=== PATIENT | male | born 1995 | race Caucasian/White ===

== ENCOUNTER → 2018-07-13 12:01 | Outpatient (CLI) | payer OTHER, SELFPAY ==
[2018-07-13 14:53] LABS: HIV - WCH Non-Reactive (Nonreactive)
[2018-07-13 16:33] LABS: Chlamydia Trachomatis by PCR Negative (Negative)
[2018-07-13 16:34] LABS: Probe Check PASS; Specimen Processing Control PASS
[2018-07-13 16:35] LABS: Sample Adequacy Control PASS
[2018-07-14 14:14] LABS: Hep C Antibodies <0.1 s/co ratio (0.0-0.9)
[2018-07-16 01:17] LABS: Rapid Plasmin Reagin (RPR) NONREACTIVE (NONREACTIVE)
== END ==
PROVIDERS: Family Provider Family Medicine; PCP Family Medicine; Visit Provider Family Medicine
DX: Z11.3 Encounter for screening for infections with a predominantly sexual mode of transmission (principal)
CPT/HCPCS: 36415; 86592; 86703; 86803; 87491

== ENCOUNTER → 2018-07-27 16:35 | Outpatient (CLI) | payer OTHER, SELFPAY ==
[2018-07-27 17:28] LABS: Absolute Lymphocyte Count 1.56 X10^3/ul (0.83-4.51); Absolute Neutrophil Count 4.1 X10^3/uL (2.0-7.7); Basophil# 0.02 X10^3/uL; Basophil% 0.3 % (0-1); Eosinophil# 0.19 X10^3/uL; Hematocrit 42.5 % (40-54); Hemoglobin 14.8 g/dl (13.0-16.5); Lymphocyte # 1.56 X10^3/ul (4.0); Lymphocyte % 24.9 % (19-41); Mean Corp Hgb Conc 34.8 g/gl (32-36); Mean Platelet Vol. 9.7 fl (6.2-12.0); Monocyte# 0.43 X10^3/uL; Monocyte% 6.9 % (0-10); Neutrophil # 4.06 X10^3/uL (2.7-7.7); Neutrophil % 64.7 % (47-70); Platelet Count 243 K/mm3 (150-450); RBC Distribution Width CV 11.8 % (11.6-14.6); RBC Distribution Width SD 36.7 fl (35.1-43.9); Red Blood Count 4.94 M/mm3 (4.6-6.2); White Blood Count 6.3 K/mm3 (4.4-11.0)
[2018-07-27 17:31] LABS: POSITIVE COUNT NO; POSITIVE DIFFERENTIAL NO; POSITIVE MORPHOLOGY NO
[2018-07-27 17:58] LABS: Anion Gap 6 (5-15); BUN 17 mg/dL (7-18); BUN/Creat Ratio 15.3 RATIO (10-20); Calcium,Total 8.7 mg/dL (8.5-10.1); Chloride 104 mmol/L (98-107); Creatinine, Serum 1.11 mg/dL (0.70-1.30); EST Glomerular Filtration Rate 87 mL/min (>60); Est Glom Filt Rate - Afr Amer 105 mL/min (>60); Glucose 102 mg/dL (74-106); Potassium 3.8 mmol/L (3.5-5.1); Sodium Level 139 mmol/L (136-145)
== END ==
PROVIDERS: Family Provider Family Medicine; PCP Family Medicine; Visit Provider Family Medicine
DX: I49.9 Cardiac arrhythmia, unspecified (principal)
CPT/HCPCS: 36415; 80048; 83735; 85025

== ENCOUNTER → 2020-07-06 09:53 | Outpatient (CLI) | payer OTHER, SELFPAY ==
[2018-11-10 16:02] VITALS: BMI 29.5
[2020-07-06 13:21] LABS: HIV - WCH Non-Reactive (Nonreactive); Hepatitis C Antibody Non-Reactive (Nonreactive)
[2020-07-10 15:16] LABS: Gonococcus By Nucleic Acid AMP Negative (Negative)
[2020-07-10 15:22] LABS: Chlamydia By Nucleic Acid AMP Positive (Negative)
[2020-07-12 05:22] LABS: Rapid Plasmin Reagin (RPR) NONREACTIVE (NONREACTIVE)
== END ==
PROVIDERS: PCP Family Medicine; Referring Provider Family Medicine; Visit Provider Family Medicine
DX: Z11.3 Encounter for screening for infections with a predominantly sexual mode of transmission (principal)
CPT/HCPCS: 36415; 86592; 86703; 86803; 87086; 87491; 87591

== ENCOUNTER → 2020-07-19 | Outpatient (CLI) | payer OTHER, SELFPAY ==
[2018-11-10 16:02] VITALS: BMI 29.5
[2020-07-19 18:08] LABS: Chlamydia Trachomatis by PCR Negative (Negative); Neisserai gonorrhoeae by PCR Negative (Negative); Probe Check PASS; Sample Adequacy Control PASS; Specimen Processing Control PASS
== END | disposition home or self-care (01) ==
LOC: LABSPEC 12:11
PROVIDERS: PCP Family Medicine; Referring Provider Family Medicine; Visit Provider Family Medicine
DX: A74.9 Chlamydial infection, unspecified (principal)
CPT/HCPCS: 87491; 87591

== ENCOUNTER 2021-02-21 12:13 | Emergency (ER) | payer BC, SELFPAY ==
[2018-11-10 16:02] VITALS: BMI 29.5
[2021-02-21 12:14] VITALS: BP 171/104; PULSE 93; RESP 16; TEMP 36.6; O2SAT 98; BMI 29.2
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
[2021-02-21] MEDS: Rabies Immune Globulin/PF 300 UNIT/ML, 5 ML VIAL 1500 UNIT IM (15:03)
[2021-02-21] MEDS: Rabies Immune Globulin/PF 300 UNIT/ML, 1 ML VIAL 400 UNIT IM (15:05)
[2021-02-21] MEDS: Rabies Vaccine,Human Diploid 2.5 UNITS Vial IM (15:06)
[2021-02-21 15:31] VITALS: RESP 18
== END 2021-02-21 15:31 | disposition home or self-care (01) ==
PROVIDERS: Emergency Provider Emergency Medicine; PCP Family Medicine
DX: S60.572A Other superficial bite of hand of left hand, initial encounter (principal); S60.472A Other superficial bite of right middle finger, initial encounter; S60.474A Other superficial bite of right ring finger, initial encounter; W64.XXXA Exposure to other animate mechanical forces, initial encounter; Y93.9 Activity, unspecified; Y92.9 Unspecified place or not applicable; Y99.9 Unspecified external cause status
CPT/HCPCS: 90375; 90675; 96372; 99282

== ENCOUNTER 2021-02-24 09:15 | Outpatient (CLI) | payer BC, SELFPAY ==
[2021-02-24 09:01] VITALS: BP 137/72; PULSE 71; RESP 17; TEMP 36.1; O2SAT 99; BMI 29.2
[2021-02-24 09:20] VITALS: BMI 29.2
[2021-02-24] MEDS: Rabies Vaccine,Human Diploid 2.5 UNITS Vial IM (09:23)
== END 2021-02-24 09:45 | disposition home or self-care (01) ==
PROVIDERS: PCP Family Medicine; Visit Provider Emergency Medicine
DX: Z23 Encounter for immunization (principal)
CPT/HCPCS: 90471; 90675; 96372

== ENCOUNTER 2021-02-28 16:47 | Outpatient (CLI) | payer BC, SELFPAY ==
[2021-02-28] MEDS: Rabies Vaccine,Human Diploid 2.5 UNITS Vial IM (17:51)
[2021-02-28 17:55] VITALS: BP 139/63; PULSE 72; RESP 15; TEMP 36.9; O2SAT 98; BMI 29.2
--- NOTE | 2021-02-28 18:58 | ED.RN ---
NO REACTION NOTED BY THIS RN, PT D/C. PT LEFT AT 1813. REGISTRATION NOTIFIED OF PT DISPO.
== END 2021-02-28 18:58 | disposition home or self-care (01) ==
PROVIDERS: PCP Family Medicine; Visit Provider Emergency Medicine
DX: Z23 Encounter for immunization (principal)
CPT/HCPCS: 90471; 90675; 96372

== ENCOUNTER 2021-03-07 15:58 | Outpatient (CLI) | payer BC, SELFPAY ==
[2021-03-07 15:59] VITALS: BP 138/74; PULSE 72; RESP 15; TEMP 36.4; O2SAT 99; BMI 29.2
[2021-03-07] MEDS: Rabies Vaccine,Human Diploid 2.5 UNITS Vial IM (17:11)
== END 2021-03-07 18:13 | disposition home or self-care (01) ==
LOC: ED 18:14
PROVIDERS: PCP Family Medicine
DX: Z23 Encounter for immunization (principal)
CPT/HCPCS: 90675; 96372

== ENCOUNTER → 2021-08-16 | Outpatient (CLI) | payer MEDICARE, SELFPAY | END | disposition home or self-care (01) | PROVIDERS: PCP Family Medicine; Referring Provider Family Medicine; Visit Provider Family Medicine | DX: U07.1 COVID-19 (principal) | CPT/HCPCS: 87635; U0005; U0003 ==